=== PATIENT | female | born 1990 | race Caucasian/White ===

== ENCOUNTER 2018-01-09 21:50 | Emergency (ER) | payer SELFPAY ==
--- NOTE | 2018-01-09 23:12 | ER Document Report ---
ED Medical Screen (RME) - General Chief Complaint: Pelvic Pain Stated Complaint: PELVIC PAIN/HEADACHE Time Seen by Provider: 01/09/18 23:09 Mode of Arrival: Ambulatory Information source: Patient Notes: 27-year-old female was extremely late (November 18 LNMP) for menses that started on January 03 it was extremely heavy with lots of clots. Since then she has developed pelvic pain with a foul-smelling vaginal discharge, urinary frequency , incontinence of urine in the bed, right flank pain. possible fever. ( spon miscarriage 2014) - Related Data Allergies/Adverse Reactions: No Known Allergies Allergy (Unverified 01/09/18 21:52) Past Medical History - Social History Frequency of alcohol use: Social Drug Abuse: None Renal/ Medical History: Denies: Hx Peritoneal Dialysis Physical Exam - Vital signs Vitals: Temp Pulse Resp BP Pulse Ox 98.1 F 78 20 117/76 100 01/09/18 22:07 01/09/18 22:07 01/09/18 22:07 01/09/18 22:07 01/09/18 22:07 Course - Vital Signs Vital signs: Temp Pulse Resp BP Pulse Ox 98.1 F 78 20 117/76 100 01/09/18 22:07 01/09/18 22:07 01/09/18 22:07 01/09/18 22:07 01/09/18 22:07
[2018-01-09 23:39] LABS: APPEARANCE,URINE CLEAR; BILIRUBIN,URINE NEGATIVE (NEGATIVE); COLOR,URINE STRAW; GLUCOSE, URINE NEGATIVE (NEGATIVE); KETONES,URINE NEGATIVE (NEGATIVE); LEUKOCYTE ESTERASE,URINE NEGATIVE (NEGATIVE); NITRITE,URINE NEGATIVE (NEGATIVE); PROTEIN,URINE NEGATIVE (NEGATIVE); URINE SPECIFIC GRAVITY 1.003; UROBILINOGEN,URINE NEGATIVE mg/dL (<2.0)
[2018-01-09 23:42] LABS: T.VAGINALIS (WET MOUNT) NO TRICHOMONAS SEEN
[2018-01-09 23:43] LABS: BACTERIA (WET MOUNT) 4+ BACTERIA SEEN; EPITHELIALS (WET MOUNT) 4+ EPITHELIALS SEEN; WBCS (WET MOUNT) FEW WBCS SEEN; YEAST (WET MOUNT) NO YEAST SEEN
[2018-01-09 23:48] LABS: ABSOLUTE EOSINOPHILS # (AUTO) 0.1 10^3/uL (0.0-0.6); ABSOLUTE LYMPHOCYTES (AUTO) 1.4 10^3/uL (0.5-4.7); ABSOLUTE MONOCYTES (AUTO) 0.4 10^3/uL (0.1-1.4); BASOPHILS % (AUTO) 0.8 % (0-2); EOSINOPHILS % (AUTO) 1.6 % (0-6); HEMATOCRIT 38.3 % (36.0-47.0); HEMOGLOBIN 13.4 g/dL (12.0-15.5); LYMPHOCYTES % (AUTO) 36.2 % (13-45); MEAN CORPUSCULAR HEMOGLOBIN 31.2 pg (27.0-33.4); MEAN CORPUSCULAR VOLUME 89 fl (80-97); PLATELET COUNT 247 10^3/uL (150-450); RED BLOOD COUNT 4.29 10^6/uL (3.72-5.28); RED CELL DISTRIBUTION WIDTH 13.5 % (11.5-14.0); SEGMENTED NEUTROPHILS % (AUTO) 51.4 % (42-78); TOTAL CELLS COUNTED % (AUTO) 100 %; WHITE BLOOD COUNT 3.8 10^3/uL (4.0-10.5)
--- NOTE | 2018-01-09 23:56 | ER Document Report ---
ED General - General Chief Complaint: Pelvic Pain Stated Complaint: PELVIC PAIN/HEADACHE Time Seen by Provider: 01/09/18 23:09 Mode of Arrival: Ambulatory Notes: Patient is a 27-year-old female who presents with complaint of several days of some abnormal vaginal discharge and some crampy pelvic pain is worse at night. States she is having some sweats at times at night. She has checked her temp and it is around 99 at home. She had a late. And her menstrual period was heavy. This was on January 03. She has had one previous and miscarriage. She has not checked a test during these episodes that she has been having his last several days. No vomiting. No fevers. She says at night when she is having the cramping she will sometimes urinate in the bed. She is on a different psychiatric medications however these dosages have not changed and none of these medications are new. She was seen by Neyda guardado, nurse practitioner from. Pelvic exam was performed by her. Wet prep shows evidence of possible bacterial vaginosis. test and ultrasound are pending at this time. - Related Data Allergies/Adverse Reactions: No Known Allergies Allergy (Unverified 01/09/18 21:52) Past Medical History - General Information source: Patient - Social History Smoking Status: Current Every Day Smoker Frequency of alcohol use: Social Drug Abuse: None Family History: Reviewed & Not Pertinent Patient has suicidal ideation: No Patient has homicidal ideation: No Renal/ Medical History: Denies: Hx Peritoneal Dialysis Review of Systems - Review of Systems Notes: My Normal Review Basic REVIEW OF SYSTEMS: CONSTITUTIONAL : Denies fever, chills, or sweats. Denies recent illness. EENT: Denies eye, ear, throat, or mouth pain or symptoms. Denies nasal or sinus congestion. RESPIRATORY: Cough. GASTROINTESTINAL: Denies abdominal pain. Denies nausea, vomiting, or diarrhea. GENITOURINARY: Dysuria. Some loss of urinary continence at home. FEMALE GENITOURINARY: Delayed menstrual period. Abnormal vaginal discharge. MUSCULOSKELETAL: Denies neck or back pain or joint pain or swelling. SKIN: Denies rash or skin lesions. NEUROLOGICAL: Denies altered mental status or loss of consciousness. Denies headache. Denies weakness or paralysis or loss of use of either side. Denies problems with gait or speech. Denies sensory or motor loss. ALL OTHER SYSTEMS REVIEWED AND NEGATIVE. Physical Exam - Vital signs Vitals: Temp Pulse Resp BP Pulse Ox 98.1 F 78 20 117/76 100 01/09/18 22:07 01/09/18 22:07 01/09/18 22:07 01/09/18 22:07 01/09/18 22:07 - Notes Notes: General Appearance: Well nourished, alert, cooperative, no acute distress, no obvious discomfort. Well-appearing. Vitals: reviewed, See vital signs table. Head: no swelling or tenderness to the head Eyes: PERRL, EOMI, Conjuctiva clear Mouth: No decreasd moisture Neck: Supple, no neck tenderness, No thyromegaly Lungs: No wheezing, No rales, No rhonci, No accessory muscle use, good air exchange bilaterally. Heart: Normal rate, Regular rythm, No murmur, no rub Abdomen: Normal BS, soft, No rigidity, mild lower abdominal tenderness to palpation, No guarding, no rebound, no abdominal masses Extremities: strength 5/5 in all extremities, good pulses in all extremities, no swelling or tenderness in the extremities, no edema. Skin: warm, dry, appropriate color, no rash Neuro: speech clear, oriented x 3, normal affect, responds appropriately to questions. Course - Re-evaluation Re-evalutation: 01/10/18 01:12 A call the lab because her test was still not back yet. Uptake informed that she actually called and spoke with the nurse and the nurses was passed on information to me that the patient's qualitative hCG was negative and that they want to know if they could release this is supposed running the quantitative. I told them to release the negative qualitative as this is appropriate and we do not need a quantitative being that the qualitative is negative. 01/10/18 05:41 I talked the patient's . Patient does have a recent history of being told she needs a colposcopy after her Pap smear came back with some abnormal cells. She recently moved to the area and therefore has been unable to have this performed. Initially assumed that the patient had a pelvic exam upfront in triage however when I spoke with the nurse practitioner she said that she had the patient does do self swabs. I went back and spoke with the patient and informed her that we should do a pelvic exam however the patient says her is to get a work in the morning and she prefers just to follow-up at [facility] and be treated for bacterial vaginosis being that there is some bacteria on her wet prep. Patient says that she would follow-up closely with the [facility]. I informed her if she is unable to follow-up with [facility] then she can return here. I informed her we cannot [facility] but we can do a pelvic exam and do visualization to see what her discharge looks like and also to see what her cervix looks like. Patient is agreeable to this and will be discharged home as she requests. Dictation of this chart was performed using voice recognition software; therefore, there may be some unintended grammatical errors. - Vital Signs Vital signs: Temp Pulse Resp BP Pulse Ox 98.0 F 64 16 129/85 H 97 01/10/18 02:03 01/10/18 02:03 01/10/18 02:03 01/10/18 02:03 01/10/18 02:03 - Laboratory Result Diagrams: 01/09/18 23:15 Laboratory results interpreted by me: 01/09/18 23:15 WBC 3.8 L Discharge - Discharge Clinical Impression: Bacterial vaginosis, Pelvic pain Condition: Good Disposition: HOME, SELF-CARE Additional Instructions: Please follow up with the [facility] (Dr. Cheng) for reevaluation and to discuss having your colposcopy performed. Please return to the ER immediately if you develop fevers, intractable pain, or feel that you are worsening. Prescriptions: Fluconazole [Diflucan] 150 mg PO ONCE PRN #2 tablet PRN Reason: Metronidazole [Flagyl 500 mg Tablet] 500 mg PO BID #14 tablet Referrals: CHRISTELLE CHENG MD [ACTIVE STAFF] - Follow up in 3-5 days
[2018-01-10 01:09] LABS: CHLAM PCR NOT DETECTED (NOT DETECT); GON PCR NOT DETECTED (NOT DETECT)
[2018-01-10] MEDS ORDERED: METRONIDAZOLE 500 MG TABLET PO ONE (01:45)
[2018-01-10 02:05] VITALS: BP 129/85
--- NOTE | 2018-01-10 02:17 | RADIOLOGY REPORT (SQ) ---
EXAM DESCRIPTION: US PELVIS COMPLETED DATE/TME: 01/10/2018 01:12 CLINICAL HISTORY: 27 years Female, pelvic pain Comparison: None. Technique: Transvaginal. LIMITATIONS: None. FINDINGS: 8.3-cm uterus, 1.0-cm endometrial stripe thickness, 2.8-cm cervical length, 3.2-cm right ovary, and 3.7-cm left ovary appear normal in size, shape, echotexture, and vascularity. Small free fluid in the left ovarian fossa. IMPRESSION: Normal pelvic sonogram..
== END 2018-01-10 02:07 | disposition home or self-care (01) ==
LOC: ER 21:50
DX: N76.0 Acute vaginitis (principal); B96.89 Other specified bacterial agents as the cause of diseases classified elsewhere; R10.2 Pelvic and perineal pain; R51 Headache; R61 Generalized hyperhidrosis; R05 Cough; F17.200 Nicotine dependence, unspecified, uncomplicated
CPT/HCPCS: 36415; 76856; 81001; 84702; 84703; 85025; 86900; 86901; 87086; 87210; 87491; 87591; 93976; 99284

== ENCOUNTER 2018-05-09 21:34 | Emergency (ER) | payer SELFPAY ==
--- NOTE | 2018-05-09 23:28 | ER Document Report ---
ED General - General Chief Complaint: Abdominal Cramping Stated Complaint: ABDOMINAL CRAMPING Time Seen by Provider: 05/09/18 23:17 Notes: Patient is a 27-year-old female at approximately 11 weeks gestation who presents with lower abdominal cramping after her dog weighing approximately 50 pounds jumped on her abdomen shortly prior to arrival. Patient describes the pain as a mild, intermittent, cramping lower abdominal discomfort. Nothing seems to improve or worsen the pain. Denies any associated vaginal bleeding or discharge. States that she came to the emergency department due to concern of the welfare of her unborn child. She has not seen her [employer] regarding today's concerns as she is visiting from out of town. No history of similar injuries in the past. TRAVEL OUTSIDE OF THE [place] IN LAST 30 DAYS: No - Related Data Allergies/Adverse Reactions: No Known Allergies Allergy (Unverified 01/09/18 21:52) Past Medical History - General Information source: Patient - Social History Smoking Status: Never Smoker Frequency of alcohol use: None Drug Abuse: None Lives with: Spouse/Significant other Family History: Reviewed & Not Pertinent Patient has suicidal ideation: No Patient has homicidal ideation: No Renal/ Medical History: Denies: Hx Peritoneal Dialysis Review of Systems - Review of Systems Notes: Constitutional: Negative for fever. HENT: Negative for sore throat. Eyes: Negative for visual changes. Cardiovascular: Negative for chest pain. Respiratory: Negative for shortness of breath. Gastrointestinal: Positive for lower abdominal cramping Genitourinary: Negative for dysuria. Musculoskeletal: Negative for back pain. Skin: Negative for rash. Neurological: Negative for headaches, weakness or numbness. 10 point ROS negative except as marked above and in HPI. Physical Exam - Vital signs Vitals: Temp Pulse BP Pulse Ox 99.2 F 78 121/78 94 05/09/18 22:30 05/09/18 22:30 05/09/18 22:30 05/09/18 22:30 Interpretation: Normal Notes: PHYSICAL EXAMINATION: GENERAL: Well-appearing, well-nourished and in no acute distress. HEAD: Atraumatic, normocephalic. EYES: Pupils equal round and reactive to light, extraocular movements intact, sclera anicteric, conjunctiva are normal. ENT: nares patent, oropharynx clear without exudates. Moist mucous membranes. NECK: Normal range of motion, supple without lymphadenopathy LUNGS: Breath sounds clear to auscultation bilaterally and equal. No wheezes rales or rhonchi. HEART: Regular rate and rhythm without murmurs ABDOMEN: Soft, nontender, normoactive bowel sounds. No guarding, no rebound. No masses appreciated. EXTREMITIES: Normal range of motion, no pitting or edema. No cyanosis. NEUROLOGICAL: No focal neurological deficits. Moves all extremities spontaneously and on command. PSYCH: Normal mood, normal affect. SKIN: Warm, Dry, normal turgor, no rashes or lesions noted. Course - Re-evaluation Re-evalutation: 05/09/18 23:26 Patient is currently and presenting with lower abdominal pain after her dog jumped on her lower abdomen just prior to arrival. No vaginal bleeding or discharge. Bedside ultrasound shows a viable intrauterine , appropriate cardiac activity and active movement. Given clinical history no indication for labs. Patient denies any dysuria. Patient has tolerated oral intake here in the emergency department without difficulty. Vitals are within normal limits. At this time will discharge with return precautions and follow-up recommendations. Verbal discharge instructions given a the bedside and opportunity for questions given. Medication warnings reviewed. Patient is in agreement with this plan and has verbalized understanding of return precautions and the need for primary care follow-up in the next 24-72 hours. - Vital Signs Vital signs: Temp Pulse Resp BP Pulse Ox 98.7 F 85 16 116/75 97 05/09/18 23:59 05/09/18 23:59 05/09/18 23:59 05/09/18 23:59 05/09/18 23:59 Discharge - Discharge Clinical Impression: First trimester , Lower abdominal pain Condition: Good Disposition: HOME, SELF-CARE Additional Instructions: You were seen for abdominal pain during . Your ultrasound is normal and reassuring today. Return to the emergency department immediately if you have worsening of your pain, have persistent vomiting, develop a fever of greater than 100.4F, begin to have vaginal bleeding, or any other symptoms that are worrisome to you.
[2018-05-10] VITALS: BP 116/75
== END 2018-05-10 | disposition home or self-care (01) ==
LOC: ER 21:34
DX: O9A.211 Injury, poisoning and certain other consequences of external causes complicating pregnancy, first trimester (principal); O26.891 Other specified pregnancy related conditions, first trimester; R10.30 Lower abdominal pain, unspecified; W22.8XXA Striking against or struck by other objects, initial encounter; Z3A.11 11 weeks gestation of pregnancy
CPT/HCPCS: 99283

== ENCOUNTER 2018-08-16 19:36 | Outpatient (CLI) | payer MEDICAID ==
[2018-08-16 20:00] LABS: APPEARANCE,URINE CLEAR; BILIRUBIN,URINE NEGATIVE (NEGATIVE); COLOR,URINE YELLOW; GLUCOSE, URINE NEGATIVE (NEGATIVE); KETONES,URINE NEGATIVE (NEGATIVE); LEUKOCYTE ESTERASE,URINE NEGATIVE (NEGATIVE); NITRITE,URINE NEGATIVE (NEGATIVE); PROTEIN,URINE NEGATIVE (NEGATIVE); URINE SPECIFIC GRAVITY 1.009; UROBILINOGEN,URINE NEGATIVE mg/dL (<2.0)
[2018-08-16 20:11] LABS: URINE AMPHETAMINES SCREEN NEGATIVE; URINE BARBITURATES SCREEN NEGATIVE; URINE BENZODIAZEPINES SCREEN NEGATIVE; URINE COCAINE SCREEN NEGATIVE; URINE MARIJUANA (THC) SCREEN NEGATIVE; URINE METHADONE SCREEN NEGATIVE; URINE PHENCYCLIDINE SCREEN NEGATIVE
== END 2018-08-16 20:47 | disposition home or self-care (01) ==
LOC: LC 19:36
PROVIDERS: ATTEND Obstetrics & Gynecology
PROC: 4A1HXCZ Monitoring of Products of Conception, Cardiac Rate, External Approach (ICD-10-PCS; principal; 2018-08-16)
DX: O47.02 False labor before 37 completed weeks of gestation, second trimester (principal); Z3A.25 25 weeks gestation of pregnancy
CPT/HCPCS: 80307; 81001